=== PATIENT | female | born 1995 | race Asian ===

== ENCOUNTER 2016-12-27 04:09 | Outpatient (CLI) | payer OTHER ==
[~2016-12-27] VITALS: Ht 165.1 cm; Wt 88.0 kg
[~2016-12-27 04:09] MED LIST: ACET325T14 PO
[2016-12-27] MEDS ORDERED: DIPHENHYDRAMINE 25 MG CAPSULE ONE ×2 (05:36)
[2016-12-27] MEDS ORDERED: HYDROcodone/APAP 5/325 TABLET ONE (05:36)
[2016-12-27] MEDS ORDERED: DIPHENHYDRAMINE 25 MG CAPSULE PO PRN (06:00)
[2016-12-27] MEDS ORDERED: hydrOXYzine 50 MG/ML IM ONE (06:00)
[2016-12-27] MEDS ORDERED: HYDROcodone/APAP 5/325 TABLET PO ONE (06:00)
[2016-12-27] MEDS ORDERED: MEPERIDINE/PF 100 MG/ML ONE (06:01)
[2016-12-27] MEDS ORDERED: MEPERIDINE/PF 100 MG/ML IM PRN (06:30)
== END 2016-12-27 06:00 | disposition home or self-care (01) ==
LOC: LDOP 04:09
PROVIDERS: ATTEND Obstetrics & Gynecology
DX: O26.893 Other specified pregnancy related conditions, third trimester (principal); R10.9 Unspecified abdominal pain; O62.9 Abnormality of forces of labor, unspecified; O48.0 Post-term pregnancy; Z3A.40 40 weeks gestation of pregnancy
CPT/HCPCS: 59025; 96372; 99201; J2175; J3410; G0463

== ENCOUNTER 2016-12-27 09:50 | Inpatient (IN) | payer OTHER ==
[~2016-12-27] VITALS: Ht 165.1 cm; Wt 88.0 kg
[2016-12-27] MEDS ORDERED: D5%-LACTATED RINGERS 1,000 ML IV SCH (12:13)
[2016-12-27] MEDS ORDERED: OXYTOCIN 30U/ 0.9% NaCL 500ML 500 ML IV ONE (12:13)
[2016-12-27] MEDS ORDERED: NEWBORN KIT ONE (12:18)
[2016-12-27] MEDS: LACTATED RINGERS 1,000 ML IV SCH ×4 (12:22→19:34)
[2016-12-27 12:30] VITALS: BP 115/66
[2016-12-27] MEDS ORDERED: ONDANSETRON 2MG/ML, 2ML IVPush PRN (12:30)
[2016-12-27] MEDS ORDERED: CALCIUM CARBONATE 500 MG TAB.CHEW PO PRN (12:30)
[2016-12-27 12:34] LABS: HEMOGLOBIN 11.7 g/dL (11.7-16.4)
[2016-12-27] MEDS ORDERED: FENTANYL/BUPIV./NS/PF 250 ML EPIDCONT ONE (13:03)
[2016-12-27] MEDS ORDERED: LIDOCAINE/PF 1.5%-EPI 1:200K, 30ML ONE (13:03)
[2016-12-27] MEDS ORDERED: FENTANYL/BUPIV./NS/PF 250 ML EPIDCONT SCH (13:35)
[2016-12-27] MEDS ORDERED: LACTATED RINGERS 1,000 ML IVBOLUS PRN (14:00)
[2016-12-27] MEDS ORDERED: OXYTOCIN 30U/ 0.9% NaCL 500ML 500 ML ONE (15:21)
[2016-12-27] MEDS ORDERED: OXYTOCIN 30U/ 0.9% NaCL 500ML 500 ML IV PRN (17:24)
[2016-12-27] MEDS ORDERED: ACETAMINOPHEN 325 MG TABLET ONE ×2 (19:15→23:53)
[2016-12-27] MEDS: ACETAMINOPHEN 325 MG TABLET PO PRN ×2 (19:20→23:55)
[2016-12-28] MEDS ORDERED: GENTAMICIN PER PHARMACY MC PRN (04:00)
[2016-12-28] MEDS: AMPICILLIN 2 GM in SODIUM CHLORIDE 0.9% 100 ML IV SCH ×4 (04:20→22:08)
[2016-12-28] MEDS ORDERED: CALCIUM CARBONATE 500 MG TAB.CHEW PO PRN (04:30)
[2016-12-28] MEDS ORDERED: PHARMACOKINETIC CONSULTATION MC ONE (04:30)
[2016-12-28] MEDS ORDERED: PHARMACOKINETIC MONITORING MC PRN (04:30)
[2016-12-28] MEDS ORDERED: ONDANSETRON 2MG/ML, 2ML IV PRN (04:30)
[2016-12-28] MEDS ORDERED: METOCLOPRAMIDE 5 MG/ML, 2ML IV PRN (04:30)
[2016-12-28] MEDS ORDERED: HYDROcodone/APAP 5/325 TABLET PO PRN (04:30)
[2016-12-28] MEDS ORDERED: ACETAMINOPHEN 325 MG TABLET PO PRN (04:30)
[2016-12-28] MEDS ORDERED: MAGNESIUM HYDROXIDE 8%, 30ML UDC PO PRN (04:30)
[2016-12-28] MEDS ORDERED: GENTAMICIN 360 MG in SODIUM CHLORIDE 0.9% 100 ML IV SCH (04:30)
[2016-12-28] MEDS ORDERED: OXYTOCIN 30U/ 0.9% NaCL 500ML 500 ML ONE (04:43)
[2016-12-28] MEDS: OXYTOCIN 30U/ 0.9% NaCL 500ML 500 ML IV SCH ×2 (04:51→14:17)
[2016-12-28] MEDS ORDERED: IBUPROFEN 600 MG TABLET ONE (04:58)
[2016-12-28] MEDS ORDERED: HYDROcodone/APAP 5/325 TABLET ONE (04:58)
[2016-12-28] MEDS: HYDROcodone/APAP 5/325 TABLET PO PRN ×4 (04:59→22:52)
[2016-12-28] MEDS: IBUPROFEN 600 MG TABLET PO PRN ×3 (05:00→22:08)
[2016-12-28 06:05] VITALS: BP 95/59
[2016-12-28] MEDS: DOCUSATE 100 MG CAPSULE PO PRN ×2 (09:15→22:08)
[2016-12-28] MEDS: PRENATAL VIT/IRON/FA 1 EACH TABLET PO SCH (09:15)
[2016-12-28 11:40] VITALS: BP 102/67
[2016-12-28 12:03] LABS: HEMOGLOBIN 11.5 g/dL (11.7-16.4)
[2016-12-28 12:19] LABS: DIFF TOTAL CELLS COUNTED 100 CELL DIFF
[2016-12-28 12:21] LABS: VERIFY COUNTS? YES
[2016-12-28 16:15] VITALS: BP 90/59
[2016-12-28 19:15] VITALS: BP 95/61
[2016-12-29] MEDS: OXYTOCIN 30U/ 0.9% NaCL 500ML 500 ML IV SCH ×2 (00:17→10:17)
[2016-12-29 07:02] VITALS: BP 106/72
[2016-12-29] MEDS: IBUPROFEN 600 MG TABLET PO PRN (09:14)
[2016-12-29] MEDS: DOCUSATE 100 MG CAPSULE PO PRN (09:14)
[2016-12-29] MEDS: PRENATAL VIT/IRON/FA 1 EACH TABLET PO SCH (09:14)
[2016-12-29] MEDS ORDERED: IBUP-1222 PO (16:22)
[2016-12-29] MEDS ORDERED: DOCU-30 PO (16:23)
[2016-12-29] MEDS ORDERED: OXYC-302 PO (16:25)
[2016-12-29] MEDS ORDERED: MAGN400O4 PO (16:27)
== END 2016-12-29 18:12 | disposition home or self-care (01) | DRG 775 ==
LOC: LDOP 09:50 → LDIP 12:04 → 2NW 12-28 05:43
PROVIDERS: ADMIT Obstetrics & Gynecology; ATTEND Obstetrics & Gynecology
PROC: 10D07Z6 Extraction of Products of Conception, Vacuum, Via Natural or Artificial Opening (ICD-10-PCS; principal; 2016-12-28)
PROC: 0DQR0ZZ Repair Anal Sphincter, Open Approach (ICD-10-PCS; 2016-12-28)
PROC: 0W8NXZZ Division of Female Perineum, External Approach (ICD-10-PCS; 2016-12-28)
PROC: 10907ZC Drainage of Amniotic Fluid, Therapeutic from Products of Conception, Via Natural or Artificial Opening (ICD-10-PCS; 2016-12-28)
PROC: 00HU33Z Insertion of Infusion Device into Spinal Canal, Percutaneous Approach (ICD-10-PCS; 2016-12-28)
PROC: 3E0R3CZ (ICD-10-PCS; 2016-12-28)
DX: O41.1230 Chorioamnionitis, third trimester, not applicable or unspecified (principal); O70.20 Third degree perineal laceration during delivery, unspecified; Z37.0 Single live birth; Z3A.40 40 weeks gestation of pregnancy; Z82.49 Family history of ischemic heart disease and other diseases of the circulatory system
CPT/HCPCS: 36415; 80170; 82565; 82803; 85025; 86850; 86900; J0290; J1580; J2590; J3010; J7120; J7121

== ENCOUNTER 2018-08-25 19:30 | Emergency (ER) | payer MEDICAID ==
[~2018-08-25] VITALS: Ht 167.6 cm; Wt 89.0 kg
[~2018-08-25 19:30] MED LIST changes: +DOCU-131 PO; +IBUP-1222 PO; +MAGN400O7 PO; +OXYC-302 PO
[2018-08-25] MEDS ORDERED: KETOROLAC 30 MG/1 ML IM ONE (20:00)
[2018-08-25] MEDS ORDERED: PROMETHAZINE 25 MG/ML, 1ML IM ONE (20:00)
[2018-08-25 20:14] LABS: BASOPHILS # (AUTO) 0.04 x10^3/uL (0-0.1); BASOPHILS % (AUTO) 1 % (0-1); EOSINOPHILS # (AUTO) 0.32 x10^3/uL (0-0.4); EOSINOPHILS % (AUTO) 4 % (1-7); LYMPHOCYTES # (AUTO) 3.34 x10^3/uL (1-3.4); LYMPHOCYTES % (AUTO) 39 % (22-44); MD NO; MEAN CORPUSCULAR HEMOGLOBIN 25.5 pg (27.0-34.8); MEAN CORPUSCULAR HGB CONC 32.6 g/dL (32.4-35.8); MEAN CORPUSCULAR VOLUME 78.1 fL (80-100); MEAN PLATELET VOLUME 8.8 fL (7.4-10.4); MONOCYTES # (AUTO) 0.67 x10^3/uL (0.2-0.8); MONOCYTES % (AUTO) 8 % (2-9); NEUTROPHILS # (AUTO) 4.31 x10^3/uL (1.8-6.8); NEUTROPHILS % (AUTO) 50 % (42-75); PLATELET COUNT 287 x10^3/uL (130-400); RED BLOOD COUNT 4.45 x10^6/uL (3.82-5.3)
[2018-08-25] MEDS ORDERED: PROMETHAZINE 25 MG/ML, 1ML ONE (20:17)
[2018-08-25] MEDS ORDERED: KETOROLAC 30 MG/1 ML ONE (20:17)
[2018-08-25 20:23] LABS: ALANINE AMINOTRANSFERASE 37 U/L (12-78); ALBUMIN 3.4 g/dL (3.4-5.0); ANION GAP 9 mmol/L (5-15); CALCIUM 8.3 mg/dL (8.5-10.1); CHLORIDE 109 mmol/L (98-107); CREATININE 0.65 mg/dL (0.55-1.02)
[2018-08-25 20:26] LABS: ALKALINE PHOSPHATASE 92 U/L (45-117); BILIRUBIN,TOTAL 0.2 mg/dL (0.2-1.0); TOTAL PROTEIN 7.4 g/dL (6.4-8.2)
[2018-08-25 21:17] LABS: CULTURE INDICATED? NO; MICROSCOPIC NOT IND
[2018-08-25 21:20] LABS: HCG UR SG 1.006 (1.003-1.030)
[2018-08-25] MEDS ORDERED: ACETAMINOPHEN 500 MG TABLET PO ONE (21:30)
[2018-08-25] MEDS ORDERED: ACETAMINOPHEN 500 MG TABLET ONE (21:55)
[2018-08-25 22:01] VITALS: BP 105/66
== END 2018-08-25 22:03 | disposition home or self-care (01) ==
LOC: ED 21:09
DX: R10.13 Epigastric pain (principal); R11.2 Nausea with vomiting, unspecified
CPT/HCPCS: 36415; 76700; 80053; 81003; 81025; 83690; 85025; 96372; 99284; J1885; J2550

== ENCOUNTER 2019-02-10 11:51 | Emergency (ER) | payer MEDICAID ==
[~2019-02-10] VITALS: Ht 167.6 cm; Wt 88.0 kg
[2019-02-10 12:34] VITALS: BP 112/75
[2019-02-10] MEDS ORDERED: ACETAMINOPHEN 500 MG TABLET ONE (12:37)
[2019-02-10] MEDS ORDERED: PLEASE ENTER HEIGHT AND WEIGHT MC SCH (12:39)
[2019-02-10] MEDS ORDERED: ACETAMINOPHEN 500 MG TABLET PO ONE (13:00)
[2019-02-10] MEDS ORDERED: DEXAMETHASONE 4 MG TABLET PO ONE (13:00)
[2019-02-10] MEDS ORDERED: IBUPROFEN 200 MG TABLET PO ONE (13:00)
[2019-02-10] MEDS ORDERED: CEFTRIAXONE 1,000 MG IM ONE (13:30)
[2019-02-10] MEDS ORDERED: DEXAMETHASONE 4 MG TABLET ONE (13:31)
[2019-02-10] MEDS ORDERED: CEFTRIAXONE 1,000 MG ONE (13:31)
[2019-02-10] MEDS ORDERED: IBUPROFEN 200 MG TABLET ONE (13:31)
== END 2019-02-10 14:10 | disposition home or self-care (01) ==
LOC: ED 13:55
DX: J02.0 Streptococcal pharyngitis (principal)
CPT/HCPCS: 87880; 96372; 99284; J0696

== ENCOUNTER 2019-09-28 02:12 | Emergency (ER) | payer MEDICAID ==
[~2019-09-28] VITALS: Ht 167.6 cm; Wt 90.3 kg
[2019-09-28] MEDS ORDERED: ONDANSETRON ODT 4 MG PO ONE (02:30)
--- NOTE | 2019-09-28 02:30 | NUR ---
PT RESTING IN BED. SPOUSE AT BEDSIDE. NO OTHER NEEDS.
[2019-09-28 02:56] LABS: CULTURE INDICATED? YES; MICROSCOPIC INDICATED
[2019-09-28 03:15] LABS: BASOPHILS # (AUTO) 0.03 x10^3/uL (0-0.1); BASOPHILS % (AUTO) 0 % (0-1); EOSINOPHILS # (AUTO) 0.19 x10^3/uL (0-0.4); EOSINOPHILS % (AUTO) 2 % (1-7); LYMPHOCYTES # (AUTO) 2.75 x10^3/uL (1-3.4); LYMPHOCYTES % (AUTO) 31 % (22-44); MD NO; MEAN CORPUSCULAR HEMOGLOBIN 27.5 pg (27.0-34.8); MEAN CORPUSCULAR HGB CONC 32.4 g/dL (32.4-35.8); MEAN CORPUSCULAR VOLUME 84.9 fL (80-100); MEAN PLATELET VOLUME 8.1 fL (7.4-10.4); MONOCYTES # (AUTO) 0.74 x10^3/uL (0.2-0.8); MONOCYTES % (AUTO) 8 % (2-9); NEUTROPHILS # (AUTO) 5.07 x10^3/uL (1.8-6.8); NEUTROPHILS % (AUTO) 58 % (42-75); PLATELET COUNT 225 x10^3/uL (130-400); RED BLOOD COUNT 3.74 x10^6/uL (3.82-5.3); RED CELL DISTRIBUTION WIDTH 14.1 % (9.6-15.2)
--- NOTE | 2019-09-28 03:15 | NUR ---
PT HELPED TO COMMODE. CLEAN CATCH OBTAINED. PT HELPED BACK TO BED. SPOUSE AT BEDSIDE.
[2019-09-28 03:30] LABS: ALANINE AMINOTRANSFERASE 13 U/L (12-78); ALBUMIN 2.7 g/dL (3.4-5.0); ANION GAP 4 mmol/L (5-15); CALCIUM 8.5 mg/dL (8.5-10.1); CHLORIDE 108 mmol/L (98-107); CREATININE 0.49 mg/dL (0.55-1.02)
[2019-09-28] MEDS ORDERED: ACETAMINOPHEN 325 MG TABLET ONE (03:43)
[2019-09-28 03:47] LABS: ALKALINE PHOSPHATASE 58 U/L (45-117); BILIRUBIN,TOTAL 0.2 mg/dL (0.2-1.0); TOTAL PROTEIN 6.9 g/dL (6.4-8.2)
--- NOTE | 2019-09-28 03:49 | NUR ---
Patient reports pain in the epigastric area and requested tynelol for the pain. Order rec'd and patient medicated. NAD noted.
[2019-09-28] MEDS ORDERED: ACETAMINOPHEN 325 MG TABLET PO ONE (04:00)
[2019-09-28 04:22] VITALS: BP 98/57
--- NOTE | 2019-09-28 04:25 | NUR ---
Patient discharged home. Discharge instructions provided. All questions and concerns addressed. Ambulatory with steady gait. all belongings with patient
== END 2019-09-28 04:41 | disposition home or self-care (01) ==
LOC: ED 03:09
DX: O21.9 Vomiting of pregnancy, unspecified (principal); R10.84 Generalized abdominal pain; Z3A.15 15 weeks gestation of pregnancy
CPT/HCPCS: 36415; 76815; 80053; 81001; 84702; 85025; 87086; 99284

== ENCOUNTER 2020-02-16 05:00 | Inpatient (IN) | payer MEDICAID ==
[~2020-02-16] VITALS: Ht 167.6 cm; Wt 93.6 kg
[2020-02-16] MEDS ORDERED: OXYTOCIN 30U/ 0.9% NaCL 500ML 500 ML IV ONE (05:02)
[2020-02-16] MEDS ORDERED: OXYTOCIN 30U/ 0.9% NaCL 500ML 500 ML IV PRN ×2 (05:02→17:44)
[2020-02-16] MEDS: D5%-LACTATED RINGERS 1,000 ML IV SCH ×3 (05:02→21:02)
[2020-02-16] MEDS ORDERED: ONDANSETRON 2MG/ML, 2ML IVPush PRN (05:30)
[2020-02-16] MEDS ORDERED: FENTANYL PF 100 MCG/2ML IV PRN (05:30)
[2020-02-16] MEDS ORDERED: PLEASE ENTER HEIGHT AND WEIGHT MC SCH (05:30)
[2020-02-16] MEDS ORDERED: FENTANYL PF 100 MCG/2ML IVPush PRN (05:30)
[2020-02-16] MEDS ORDERED: TERBUTALINE 1 MG/ML, 1ML IVPush PRN (05:30)
[2020-02-16] MEDS ORDERED: TERBUTALINE 1 MG/ML, 1ML SQ PRN (05:30)
[2020-02-16 05:42] LABS: BASOPHILS # (AUTO) 0.03 x10^3/uL (0-0.1); BASOPHILS % (AUTO) 0 % (0-1); EOSINOPHILS # (AUTO) 0.08 x10^3/uL (0-0.4); EOSINOPHILS % (AUTO) 1 % (1-7); LYMPHOCYTES # (AUTO) 2.55 x10^3/uL (1-3.4); LYMPHOCYTES % (AUTO) 25 % (22-44); MD NO; MEAN CORPUSCULAR HEMOGLOBIN 27.7 pg (27.0-34.8); MEAN CORPUSCULAR HGB CONC 32.7 g/dL (32.4-35.8); MEAN CORPUSCULAR VOLUME 84.7 fL (80-100); MEAN PLATELET VOLUME 8.5 fL (7.4-10.4); MONOCYTES # (AUTO) 0.65 x10^3/uL (0.2-0.8); MONOCYTES % (AUTO) 7 % (2-9); NEUTROPHILS # (AUTO) 6.78 x10^3/uL (1.8-6.8); NEUTROPHILS % (AUTO) 67 % (42-75); PLATELET COUNT 199 x10^3/uL (130-400); RED BLOOD COUNT 4.13 x10^6/uL (3.82-5.3); RED CELL DISTRIBUTION WIDTH 15.3 % (9.6-15.2)
[2020-02-16] MEDS: LACTATED RINGERS 1,000 ML IV SCH ×3 (05:45→15:04)
[2020-02-16] MEDS ORDERED: OXYTOCIN 30U/ 0.9% NaCL 500ML 500 ML ONE ×3 (05:59→20:15)
[2020-02-16] MEDS ORDERED: LACTATED RINGERS 500 ML IVBOLUS PRN (07:30)
[2020-02-16] MEDS ORDERED: FENTANYL/BUPIV./NS/PF 250 ML EPIDCONT ONE (07:30)
[2020-02-16] MEDS ORDERED: MISOPROSTOL 200 MCG TABLET ONE (13:06)
[2020-02-16] MEDS ORDERED: BUPIVACAINE 0.25% ONE ×2 (14:50→14:54)
[2020-02-16] MEDS ORDERED: FENTANYL PF 100 MCG/2ML ONE (14:50)
[2020-02-16] MEDS ORDERED: LIDOCAINE/PF 1.5%-EPI 1:200K, 30ML ONE (14:54)
[2020-02-16] MEDS ORDERED: NEWBORN KIT ONE ×2 (17:04→18:51)
[2020-02-16] MEDS ORDERED: ONDANSETRON 2MG/ML, 2ML IV PRN (17:30)
[2020-02-16] MEDS ORDERED: ACETAMINOPHEN 325 MG TABLET PO PRN (17:30)
[2020-02-16] MEDS ORDERED: SIMETHICONE 80 MG CHEW TAB PO PRN (17:30)
[2020-02-16] MEDS ORDERED: DOCUSATE 100 MG CAPSULE PO PRN (17:30)
[2020-02-16] MEDS ORDERED: MISOPROSTOL 200 MCG TABLET PR PRN (17:30)
[2020-02-16] MEDS ORDERED: LIDOCAINE 1%, 20ML ONE (18:52)
[2020-02-16] MEDS: OXYTOCIN 30U/ 0.9% NaCL 500ML 500 ML IV SCH (20:22)
[2020-02-16] MEDS ORDERED: OXYcodone/APAP 5/325MG TABLET ONE (20:35)
[2020-02-16] MEDS ORDERED: IBUPROFEN 600 MG TABLET ONE (20:35)
[2020-02-16] MEDS: IBUPROFEN 600 MG TABLET PO PRN (20:40)
[2020-02-16] MEDS: OXYcodone/APAP 5/325MG TABLET PO PRN (20:42)
[2020-02-16 21:00] VITALS: BP 96/62
[2020-02-17] VITALS: BP 98/64
[2020-02-17] MEDS: IBUPROFEN 600 MG TABLET PO PRN ×2 (02:19→07:47)
[2020-02-17 02:54] LABS: BASOPHILS # (AUTO) 0.09 x10^3/uL (0-0.1); BASOPHILS % (AUTO) 1 % (0-1); EOSINOPHILS # (AUTO) 0.05 x10^3/uL (0-0.4); EOSINOPHILS % (AUTO) 0 % (1-7); LYMPHOCYTES # (AUTO) 2.53 x10^3/uL (1-3.4); LYMPHOCYTES % (AUTO) 17 % (22-44); MD NO; MEAN CORPUSCULAR HEMOGLOBIN 27.4 pg (27.0-34.8); MEAN CORPUSCULAR HGB CONC 32.4 g/dL (32.4-35.8); MEAN CORPUSCULAR VOLUME 84.7 fL (80-100); MEAN PLATELET VOLUME 8.9 fL (7.4-10.4); MONOCYTES # (AUTO) 0.68 x10^3/uL (0.2-0.8); MONOCYTES % (AUTO) 5 % (2-9); NEUTROPHILS % (AUTO) 77 % (42-75); PLATELET COUNT 208 x10^3/uL (130-400); RED BLOOD COUNT 4.35 x10^6/uL (3.82-5.3)
[2020-02-17] MEDS: OXYTOCIN 30U/ 0.9% NaCL 500ML 500 ML IV SCH ×2 (03:25→13:25)
[2020-02-17 03:44] VITALS: BP 100/66
[2020-02-17] MEDS: D5%-LACTATED RINGERS 1,000 ML IV SCH ×2 (05:02→13:02)
[2020-02-17] MEDS: LACTATED RINGERS 1,000 ML IV SCH ×2 (05:02→13:02)
[2020-02-17 05:45] VITALS: BP 95/61
[2020-02-17 07:35] VITALS: BP 106/71
[2020-02-17] MEDS: OXYcodone/APAP 5/325MG TABLET PO PRN ×3 (07:47→18:00)
[2020-02-17] MEDS ORDERED: PRENATAL VIT/IRON/FA 1 EACH TABLET PO SCH (09:00)
[2020-02-17] MEDS ORDERED: IBUP-1222 PO (11:36)
[2020-02-17] MEDS ORDERED: OXYC-302 PO (11:37)
[2020-02-17 13:00] VITALS: BP 102/68
== END 2020-02-17 19:10 | disposition home or self-care (01) | DRG 807 ==
LOC: LDIP 05:00 → 2NW 20:53
PROVIDERS: ADMIT Obstetrics & Gynecology; ATTEND Obstetrics & Gynecology
PROC: 10E0XZZ Delivery of Products of Conception, External Approach (ICD-10-PCS; principal; 2020-02-16)
PROC: 0HQ9XZZ Repair Perineum Skin, External Approach (ICD-10-PCS; 2020-02-16)
PROC: 3E0R3BZ Introduction of Anesthetic Agent into Spinal Canal, Percutaneous Approach (ICD-10-PCS; 2020-02-16)
PROC: 00HU33Z Insertion of Infusion Device into Spinal Canal, Percutaneous Approach (ICD-10-PCS; 2020-02-16)
DX: O33.9 Maternal care for disproportion, unspecified (principal); Z37.0 Single live birth; O24.420 Gestational diabetes mellitus in childbirth, diet controlled; O70.0 First degree perineal laceration during delivery; Z3A.39 39 weeks gestation of pregnancy; Z82.49 Family history of ischemic heart disease and other diseases of the circulatory system
CPT/HCPCS: 36415; J3490; 82947; 82962; 85025; 86592; 86850; 86900; G0378; J7120; J2590; J3010; U0001-CS